=== PATIENT | male | born 1960 | race Caucasian/White ===

== ENCOUNTER 2016-12-09 08:47 | Day surgery (SDC) | payer OTHER ==
[2016-12-08 10:39] VITALS: BMI 25.7
[~2016-12-09 08:47] MED LIST: LACTATED RINGERS 1,000 ML IV SCH
[2016-12-09 09:04] VITALS: RESP 16; TEMP 98
[2016-12-09] MEDS ORDERED: LIDOCAINE 1% 20 ML VIAL (10MG/ML) FOR IV START INTRADERMA ONE (09:10)
[2016-12-09] MEDS ORDERED: PROPOFOL 10 MG/ML 20 ML VIAL IV ONE (09:54)
--- NOTE | 2016-12-09 10:12 | P.PCN ---
Date of Procedure: 12/09/16 Preoperative Diagnosis: Postoperative Diagnosis: Procedure(s) Performed: BRIEF HISTORY: Patient is a 56-year-old, pleasant, white male, scheduled for an upper endoscopy as a part of evaluation of long-standing history of GERD and intermittent throat irritation for the last few months duration. He has been on Zantac 150 milligrams daily and occasionally takes it twice daily basis and his symptoms. He denies any dysphagia or odynophagia.. PROCEDURE PERFORMED: Esophagogastroduodenoscopy biopsy. PREOPERATIVE DIAGNOSIS: GERD/throat irritation. IV sedation per anesthesia. PROCEDURE: After informed consent was obtained, the patient was brought into the endoscopy unit. IV sedation was administered by Anesthesia under continuous monitoring. Initially the Olympus GIF-140 video endoscope was inserted into the mouth. Esophagus intubated without any difficulty. It was gradually advanced into the stomach and duodenum and carefully examined. The bulb and the second part of the duodenum appeared normal. The scope at this time was withdrawn to the stomach, adequately insufflated with air, and upon careful examination, mucosa of the antrum had mild mottling of the mucosa and biopsies were done from this area. The body, cardia and the fundus appeared normal. The scope was then withdrawn into the esophagus. Small hiatal hernia noted. The GE junction was located at 41 cm from the incisors. The rest of the esophagus appeared normal. Biopsies were done from the midesophagus to rule out years stomach esophagitis. There were no erosions or ulcerations seen and the patient tolerated the procedure well. IMPRESSION: 1. Mild antral gastritis. 2. Small hiatal hernia but no evidence of esophagitis or Back's esophagus. RECOMMENDATIONS: The findings of this examination were discussed with the patient as well as his family. He was advised to follow with the biopsy results. He will continue with Zantac 150 minute grams twice daily and follow antireflux measures. Implants: Indications for Procedure: Operative Findings: Description of Procedure:
[2016-12-09 10:48] VITALS: BP 112/79; PULSE 81
== END 2016-12-09 11:10 | disposition home or self-care (01) ==
LOC: ORWHC2ENDO 08:47
PROVIDERS: ATTEND Internal Medicine Gastroenterology
DX: K21.0 Gastro-esophageal reflux disease with esophagitis (principal); K29.50 Unspecified chronic gastritis without bleeding; K44.9 Diaphragmatic hernia without obstruction or gangrene; Z79.899 Other long term (current) drug therapy
CPT/HCPCS: 88305; 88342; 43239; J2704